=== PATIENT | male | born 1985 | race African-American/Black ===

== ENCOUNTER 2018-11-01 13:51 | Emergency (ER) | payer SELFPAY ==
[~2018-11-01] VITALS: Ht 182.9 cm; Wt 102.3 kg
[~2018-11-01 13:51] MED LIST: CELEXA10 MG PO; FLEXERIL 1010 MG/TAB PO; NO HOME MEDICATIONS; NORCO 325 MG-51 TAB PO; PHENERGAN W/CO120 ML PO; ROBAXIN 75750 MG/TAB PO; ZITHROMAX Z PA250 MG PO
[2018-11-01 13:59] VITALS: BP 136/68; TEMP 98.1
[2018-11-01] MEDS ORDERED: FLEXERIL 1010 MG/TAB PO (16:00)
[2018-11-01] MEDS ORDERED: NORCO 325 MG-51 TAB PO (16:00)
[2018-11-01 16:22] VITALS: PULSE 88
== END 2018-11-01 16:22 | disposition home or self-care (01) ==
LOC: COL.ER 13:51
DX: S16.1XXA Strain of muscle, fascia and tendon at neck level, initial encounter (principal); S39.012A Strain of muscle, fascia and tendon of lower back, initial encounter; S80.02XA Contusion of left knee, initial encounter; V43.52XA Car driver injured in collision with other type car in traffic accident, initial encounter; F17.210 Nicotine dependence, cigarettes, uncomplicated
CPT/HCPCS: J1885